=== PATIENT | female | born 1965 | race Caucasian/White ===

== ENCOUNTER → 2018-04-14 | Outpatient (CLI) | payer BC ==
--- NOTE | 2018-04-14 14:23 | RAD ---
EXT NON VASC LTD LEFT History: Knot in the region of left pubic region and left leg Comparison: None. Findings: Multiple sonographic images of the area of concern are submitted. This is labeled as being near the left mons pubic region. In the area of concern, there is superficial focus of hypoechogenicity with internal echoes present, about 0.8 x 0.8 x 0.7 cm in size. This is not associated with significant defined margin. There is small focus of vascularity near the periphery. Impression: 1. There is a nonspecific superficial hypoechoic lesion at site of palpable concern which may be a small complex fluid collection, diffuse internal echoes present. Electronically signed by: August Red MD (04/14/2018 2:20 PM) [id number]
== END | disposition home or self-care (01) ==
LOC: US 12:01
PROVIDERS: ATTEND Family Medicine
DX: R22.32 Localized swelling, mass and lump, left upper limb (principal)
CPT/HCPCS: 76882

== ENCOUNTER 2019-01-25 05:55 | Inpatient (IN) | payer BC ==
[~2019-01-25] VITALS: Ht 170.2 cm; Wt 104.1 kg
[2019-01-25] MEDS ORDERED: ASPIRIN 81 MG TAB.CHEW PO ONE (06:00)
[2019-01-25 06:13] LABS: BASO # 0.1 x10^3/uL (0.0-0.2); BASO % 1 % (0-3); EOS # 0.2 x10^3/uL (0.0-0.7); EOS % 3 % (0-3); HEMATOCRIT 42.5 % (36.0-47.0); HEMOGLOBIN 14.5 g/dL (12.0-15.5); LYMPH # 4.3 x10^3/uL (1.0-4.8); LYMPH % 50 % (24-48); MEAN CORPUSCULAR HEMOGLOBIN 34 pg (25-35); MEAN CORPUSCULAR HGB CONC 34 g/dL (31-37); MEAN CORPUSCULAR VOLUME 100 fL (79-100); MONO # 0.8 x10^3/uL (0.0-1.1); MONO % 9 % (0-9); NEUT # 3.2 x10^3uL (1.8-7.7); NEUT % 37 % (31-73); PLATELET COUNT 286 x10^3/uL (140-400); RED BLOOD COUNT 4.27 x10^6/uL (3.50-5.40); RED CELL DISTRIBUTION WIDTH 15.7 % (11.5-14.5); WHITE BLOOD COUNT 8.6 x10^3/uL (4.0-11.0)
--- NOTE | 2019-01-25 06:13 | PHYS DOC ---
Adult General Chief Complaint Chief Complaint: CHEST PAIN HPI HPI 53-year-old female presents with chest pain. The patient woke up to go to the restroom. She then went downstairs to get something from the living room and had sudden onset of severe 10 out of 10 central chest pain that radiates through to her shoulder blades. She states pain is also radiating up into her teeth. She denies shortness of breath, but does have diaphoresis. She's never had pain like this before. Patient has no cardiac history. She was feeling completely normal prior to this episode. The pain in the ED is also 10 out of 10. The patient denies significant medical problems. Review of Systems Review of Systems Constitutional: Denies fever or chills [] Eyes: Denies change in visual acuity, redness, or eye pain [] HENT: Denies nasal congestion or sore throat [] Respiratory: Denies cough or shortness of breath [] Cardiovascular: No additional information not addressed in HPI [] GI: Denies abdominal pain, nausea, vomiting, bloody stools or diarrhea [] : Denies dysuria or hematuria [] Musculoskeletal: Denies back pain or joint pain [] Integument: Denies rash or skin lesions [] Neurologic: Denies headache, focal weakness or sensory changes [] Endocrine: Denies polyuria or polydipsia [] All other systems were reviewed and found to be within normal limits, except as documented in this note. Current Medications Current Medications Current Medications Medications (Trade) Dose Ordered Sig/Cory Start Time Stop Time Status Last Admin Dose Admin Aspirin (Children'S Aspirin) 324 mg 1X ONCE 01/25/19 06:00 01/25/19 06:01 UNV 01/25/19 06:04 324 MG Nitroglycerin (Nitrostat) 0.4 mg 1X ONCE 01/25/19 06:15 01/25/19 06:16 UNV Allergies Allergies Allergies Coded Allergies Type Severity Reaction Last Updated Verified No Known Drug Allergies 01/25/19 No Physical Exam Physical Exam Constitutional: Well developed, obese, well nourished, no acute distress, non- toxic appearance. [] HENT: Normocephalic, atraumatic, bilateral external ears normal, oropharynx moist, no oral exudates, nose normal. [] Eyes: PERRLA, EOMI, conjunctiva normal, no discharge. [] Neck: Normal range of motion, no tenderness, supple, no stridor. [] Cardiovascular:Heart rate regular rhythm, no murmur [] Lungs & Thorax: Bilateral breath sounds clear to auscultation [] Abdomen: Bowel sounds normal, soft, no tenderness, no masses, no pulsatile masses. [] Skin: Warm, diaphoretic, no erythema, no rash. [] Back: No tenderness, no CVA tenderness. [] Extremities: No tenderness, no cyanosis, no clubbing, ROM intact, no edema. [] Neurologic: Alert and oriented X 3, normal motor function, normal sensory function, no focal deficits noted. [] Psychologic: Affect in pain, judgement normal, mood anxious. [] Current Patient Data Vital Signs Vital Signs Date Time Temp Pulse Resp B/P (MAP) Pulse Ox O2 Delivery O2 Flow Rate FiO2 01/25/19 06:05 69 157/83 EKG EKG Sinus rhythm, rate 62, normal axis, upsloping ST segments in V1 through V6, no ST depression.[] Radiology/Procedures Radiology/Procedures [] Impressions: PORTABLE CHEST 1V Clinical History: Chest pain Technique: AP view of the chest was obtained at 01/25/2019 6:05 AM. Comparison: None. Findings: The cardiomediastinal silhouette is normal. The pulmonary vasculature is normal. The lungs and pleural margins are clear. Impression: No evidence of an acute cardiopulmonary process. Electronically signed by: Favian Nation III, MD (01/25/2019 6:37 AM) [facility] [place] DICTATED AND SIGNED BY: FAVIAN NATION III, MD DATE: 01/25/19 0637 CC: OCTAVIO SHEARER MD; JOSE ALFREDO THOMPSON DO ~ Course & Med Decision Making Course & Med Decision Making Pertinent Labs and Imaging studies reviewed. (See chart for details) On arrival, the patient had an EKG performed immediately. She was also given 324 of aspirin. Her pain was 10 out of 10 so nitroglycerin was administered. The first dose did not improve her pain. She has been given a second dose. After the third dose, the patient's pain was 2 out of 10. She was feeling much better. We did not administer morphine. Her HEART score is 5. Her sodium is elevated at 146. We will give a liter of half normal saline instead of normal saline. Her chest x-rays unremarkable. Her EKG has some upsloping ST segments in the chest leads. Her initial troponin is negative. I have discussed the patient with Dr. Barfield and he has accepted the patient for admission. He has requested that I discussed the patient with cardiology to determine if she will stay at [facility] or be transferred to [place]. Dr. Keller, cardiology, does believe the patient can be safely admitted at [facility]. He has recommended we give a single dose of Lovenox prior to admission. [] Dragon Disclaimer Dragon Disclaimer This electronic medical record was generated, in whole or in part, using a voice recognition dictation system. Departure Departure: Impression: Primary Impression: Chest pain Disposition: ADMITTED INPATIENT Condition: STABLE Referrals: OCTAVIO SHEARER MD (PCP) Problem Qualifiers Primary Impression: Chest pain Chest pain type: precordial pain Qualified Codes: R07.2 - Precordial pain JOSE ALFREDO THOMPSON DO Jan 25, 2019 06:13
[2019-01-25] MEDS ORDERED: NITROGLYCERIN SUBLINGUAL 0.4 MG BOTTLE OF 25. SL ONE ×3 (06:15)
[2019-01-25] MEDS ORDERED: IV NORMAL SALINE 1,000ML 1,000 ML IV ONE (06:15)
[2019-01-25 06:26] LABS: ALBUMIN/GLOBULIN RATIO 1.3 (1.0-1.7); CALCIUM 9.4 mg/dL (8.5-10.1); CREATININE 0.8 mg/dL (0.6-1.0); GFR 74.7; POTASSIUM 3.7 mmol/L (3.5-5.1); TOTAL BILIRUBIN 0.3 mg/dL (0.2-1.0); TOTAL PROTEIN 7.2 g/dL (6.4-8.2)
[2019-01-25] MEDS ORDERED: MORPHINE SULFATE 4 MG/ML DISP.SYRIN. IV ONE (06:30)
[2019-01-25] MEDS ORDERED: ONDANSETRON PF 4 MG/2 ML VIAL. IV ONE (06:30)
--- NOTE | 2019-01-25 06:40 | RAD ---
PORTABLE CHEST 1V Clinical History: Chest pain Technique: AP view of the chest was obtained at 01/25/2019 6:05 AM. Comparison: None. Findings: The cardiomediastinal silhouette is normal. The pulmonary vasculature is normal. The lungs and pleural margins are clear. Impression: No evidence of an acute cardiopulmonary process. Electronically signed by: Adan Chappell III, MD (01/25/2019 6:37 AM) [facility]
[2019-01-25] MEDS ORDERED: IV 1/2 NORMAL SALINE 1,000 ML IV ONE (07:00)
[2019-01-25] MEDS ORDERED: ONDANSETRON PF 4 MG/2 ML VIAL. IV PRN (07:15)
[2019-01-25] MEDS ORDERED: ENOXAPARIN ** NOTE DOSE ** SYRINGE SQ ONE (07:15)
[2019-01-25] MEDS ORDERED: MORPHINE SULFATE 4 MG/ML DISP.SYRIN. IV PRN (07:30)
[2019-01-25 09:30] VITALS: BP 146/88
[2019-01-25 09:45] VITALS: BP 145/98
[2019-01-25 10:00] VITALS: BP 120/76
[2019-01-25 10:10] VITALS: BP 146/88
[2019-01-25] MEDS ORDERED: NITROGLYCERIN OINT 1 GM PACKET. ONE (10:10)
--- NOTE | 2019-01-25 10:11 | PDOC2 ---
CONSULT Date of Admission DATE: 01/25/19 TIME: 09:49 Reason for Consult: cp Problem List Problems Medical Problems: (1) Chest pain Status: Acute History of Present Illness Ms Lozano is a 53 year old female who presented to the ED with complaints of midsternal chest pain, radiating to her shoulder blades and up into her lower jaw. She reports associated dyspnea, nausea and diaphoresis. Onset with light activity. Pain relieved in the ED with NTG x 3. Initial CE negative. On arrival to room she is again having discomfort across her shoulder blades with mild discomfort in her midsternal region. she denies any prior history of similar symptoms. She does report chronic fatigue but believes it is second to depression. She reports in October she was on a cruise and very active without problems. She has been very sedentary since that time however and does now regular exercise. She denies congestive symptoms, palpitations, lightheadedness or syncope. Cardiovascular: HTN, hyperipidemia, Other (murmur) Musculoskeletal: low back pain, Other (intermittent right lower extremity parastesia ) Endocrine: Hypothyroidism Family History non contributory Social History non smoker, no illicit drugs, 6pk canned margaritas nightly Current Medications Current Medications Aspirin (Children'S Aspirin) 324 mg 1X ONCE PO Last administered on 01/25/19at 06:04; Start 01/25/19 at 06:00; Stop 01/25/19 at 06:13; Status DC Nitroglycerin (Nitrostat) 0.4 mg 1X ONCE SL Last administered on 01/25/19at 06: 05; Start 01/25/19 at 06:15; Stop 01/25/19 at 06:16; Status DC Nitroglycerin (Nitrostat) 0.4 mg 1X ONCE SL Last administered on 01/25/19at 06: 16; Start 01/25/19 at 06:15; Stop 01/25/19 at 06:16; Status DC Sodium Chloride 1,000 ml @ 1,000 mls/hr 1X ONCE IV ; Start 01/25/19 at 06:15; Stop 01/25/19 at 06:49; Status DC Nitroglycerin (Nitrostat) 0.4 mg 1X ONCE SL Last administered on 01/25/19at 06: 19; Start 01/25/19 at 06:15; Stop 01/25/19 at 06:26; Status DC Morphine Sulfate (Morphine 4mg Syringe) 4 mg 1X ONCE IV ; Start 01/25/19 at 06: 30; Stop 01/25/19 at 06:31; Status DC Ondansetron HCl (Zofran) 4 mg 1X ONCE IV ; Start 01/25/19 at 06:30; Stop at 06:31; Status DC Sodium Chloride 1,000 ml @ 1,000 mls/hr 1X ONCE IV Last administered on at 07:56; Start 01/25/19 at 07:00; Stop 01/25/19 at 07:59; Status DC Enoxaparin Sodium (Lovenox 100mg Syringe) 100 mg 1X ONCE SQ Last administered on 01/25/19at 07:53; Start 01/25/19 at 07:15; Stop 01/25/19 at 07:24; Status DC Ondansetron HCl (Zofran) 4 mg PRN Q4HRS PRN IV NAUSEA/VOMITING; Start 01/25/19 at 07:15; Stop 01/26/19 at 07:14 Morphine Sulfate (Morphine 4mg Syringe) 2 mg PRN Q2HR PRN IV PAIN; Start at 07:30 Allergies: Coded Allergies: No Known Drug Allergies (Unverified , 01/25/19) Review of System as per HPI or neg General: Alert, Oriented X3, Cooperative, mild distress HEENT: Atraumatic, EOMI, Mucous membr. moist/pink Lungs: Clear to auscultation Heart: Normal S1, Normal S2, Other (no gallops, clicks or rubs, no sig murmurs) Abdomen: Normal bowel sounds, Soft, No tenderness Extremities: No cyanosis, No edema, Normal pulses Neuro: Normal speech, Strength at 5/5 X4 ext Psych/Mental Status: Mental status NL, Mood NL VITALS Vital Signs Date Time Temp Pulse Resp B/P (MAP) Pulse Ox O2 Delivery O2 Flow Rate FiO2 01/25/19 09:30 97.8 64 20 146/88 (107) 96 Room Air Labs Laboratory Tests Test 01/25/19 06:00 White Blood Count 8.6 x10^3/uL (4.0-11.0) Red Blood Count 4.27 x10^6/uL (3.50-5.40) Hemoglobin 14.5 g/dL (12.0-15.5) Hematocrit 42.5 % (36.0-47.0) Mean Corpuscular Volume 100 fL (79-100) Mean Corpuscular Hemoglobin 34 pg (25-35) Mean Corpuscular Hemoglobin Concent 34 g/dL (31-37) Red Cell Distribution Width 15.7 % (11.5-14.5) Platelet Count 286 x10^3/uL (140-400) Neutrophils (%) (Auto) 37 % (31-73) Lymphocytes (%) (Auto) 50 % (24-48) Monocytes (%) (Auto) 9 % (0-9) Eosinophils (%) (Auto) 3 % (0-3) Basophils (%) (Auto) 1 % (0-3) Neutrophils # (Auto) 3.2 x10^3uL (1.8-7.7) Lymphocytes # (Auto) 4.3 x10^3/uL (1.0-4.8) Monocytes # (Auto) 0.8 x10^3/uL (0.0-1.1) Eosinophils # (Auto) 0.2 x10^3/uL (0.0-0.7) Basophils # (Auto) 0.1 x10^3/uL (0.0-0.2) Prothrombin Time 9.8 SEC (9.4-11.4) Prothromb Time International Ratio 1.0 (0.9-1.1) Activated Partial Thromboplast Time 25 SEC (23-33) Sodium Level 146 mmol/L (136-145) Potassium Level 3.7 mmol/L (3.5-5.1) Chloride Level 105 mmol/L (98-107) Carbon Dioxide Level 27 mmol/L (21-32) Anion Gap 14 (6-14) Blood Urea Nitrogen 10 mg/dL (7-20) Creatinine 0.8 mg/dL (0.6-1.0) Estimated GFR (Cockcroft-Gault) 74.7 BUN/Creatinine Ratio 13 (6-20) Glucose Level 134 mg/dL (70-99) Calcium Level 9.4 mg/dL (8.5-10.1) Total Bilirubin 0.3 mg/dL (0.2-1.0) Aspartate Amino Transf (AST/SGOT) 16 U/L (15-37) Alanine Aminotransferase (ALT/SGPT) 23 U/L (14-59) Alkaline Phosphatase 113 U/L (46-116) Troponin I Quantitative < 0.017 ng/mL (0-0.055) Total Protein 7.2 g/dL (6.4-8.2) Albumin 4.0 g/dL (3.4-5.0) Albumin/Globulin Ratio 1.3 (1.0-1.7) Images CXR - Impression: No evidence of an acute cardiopulmonary process. EKG - 1. sinus rhythm, anterior ischemia Assessment/Plan 1. ACS - Administered NTG, asa and lovenox. 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 R/B/A explained to patient and . Questions answered. 2. HTN 3. hx hyperlipidemia 4. hyperglycemia MADIE GANN CLAY MINE CUTTING MACHINE OPERATOR Jan 25, 2019 10:11
[2019-01-25] MEDS ORDERED: NITROGLYCERIN SUBLINGUAL 0.4 MG BOTTLE OF 25. SL PRN (10:15)
--- NOTE | 2019-01-25 10:27 | NUR ---
Pt admitted from ED with chest pain, cardiology here at time of admission. Asked Lety with Cards to see patient. Upon looking at patients EKG in ER it was noted that patient had ST elevation and ST depression. Symptoms relieved with nitro in ER but came back before coming to floor. 1 nitro given here, symptoms resolved. Repeat EKG and stat troponin done, EKG improved from ED. STEMI called, Krystin nursing pipe finishing supervisor notified, patient going straight to wharf laborer per PK. Dr Barfield made aware will accept patient there. Pt educated by Lety ESCALANTE about transfer and procedure. EMS called stat. 1 inch of nitro applied to right chest per orders from Lety. Pt complained of having difficulty breathing, 2L O2 applied for comfort. Report called to Nikole at [facility] wharf laborer. EMS arrived to take patient to wharf laborer. here with patient. Lab called with elevated troponin of 4, RN notified Lety and wharf laborer at [facility].
--- NOTE | 2019-01-25 17:18 | EKG ---
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
--- NOTE | 2019-01-25 17:19 | EKG ---
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
== END 2019-01-25 10:25 | disposition short-term general hospital (02) | DRG 311 ==
LOC: ER 05:55 → 1 SOUTH 09:18
PROVIDERS: ADMIT Internal Medicine; ATTEND Internal Medicine
DX: I24.9 Acute ischemic heart disease, unspecified (principal); E78.5 Hyperlipidemia, unspecified; I10 Essential (primary) hypertension; E03.9 Hypothyroidism, unspecified; F32.9 Major depressive disorder, single episode, unspecified; R73.9 Hyperglycemia, unspecified
CPT/HCPCS: 36415; 71045; 80053; 84484; 85025; 85610; 85730; 93005; 96360; 96372; J1650; J7030; 99285-25

== ENCOUNTER → 2019-05-08 | Outpatient (CLI) | payer BC ==
--- NOTE | 2019-05-08 14:54 | CARD ---
MR#: [id number] Date of Study: 05/08/2019 Ordering Physician: MARISABEL SMALL, Referring Physician: MARISABEL SMALL, Tech: Chela Zelaya APPROVED REPORT EXAM: Two-dimensional and M-mode echocardiogram with Doppler and color Doppler. Other Information Quality : AverageHR: 56bpm Rhythm : NSRTechnically limited study due to body habitus. INDICATION CAD RISK FACTORS Hypertension Hyperlipidemia 2D DIMENSIONS RVDd2.7 (2.9-3.5cm)Left Atrium(2D)3.9 (1.6-4.0cm) IVSd1.2 (0.7-1.1cm)Aortic Root(2D)3.4 (2.0-3.7cm) LVDd4.9 (3.9-5.9cm)LVOT Diameter2.1 (1.8-2.4cm) PWd1.1 (0.7-1.1cm)LVDs2.9 (2.5-4.0cm) FS (%) 41.6 %SV82.0 ml LVEF(%)72.4 (>50%) Aortic Valve AoV Peak Garth.157.5cm/sAoV VTI38.3cm AO Peak GR.9.9mmHgLVOT Peak Garth.120.8cm/s LVOT VTI 27.97cmAO Mean GR.6mmHg ONEL (VMAX)2.76in7IIH (VTI)2.57cm2 Mitral Valve MV E Imwmetrs33.3cm/sMV DECEL OLFR635uw MV A Jkglnilz53.7cm/sE/A Ratio0.9 Pulmonary Valve PV Peak Yzlessbv18.0cm/sPV Peak Grad.4mmHg Tricuspid Valve TR P. Cmbxxcjy693jp/sRAP IRSUSTJH6diPf TR Peak Gr.32lgPtIUVS66pfXy Pulmonary Vein S1 Qpboaarc88.9cm/sD2 Syynbjyp70.2cm/s LEFT VENTRICLE The left ventricle is normal size. There is mild concentric left ventricular hypertrophy. The left ve ntricular systolic function is normal. The Ejection Fraction is 55-60%. There is normal LV segmental wall motion. Transmitral Doppler flow pattern is Grade I-abnormal relaxation pattern. RIGHT VENTRICLE The right ventricle is mildly dilated. There is normal right ventricular wall thickness. Systolic fun ction is borderline reduced. ATRIA The left atrium size is normal. The right atrium size is normal. The interatrial septum is intact wit h no evidence for an atrial septal defect or patent foramen ovale as noted on 2-D or Doppler imaging. AORTIC VALVE The aortic valve is thickened but opens well. Doppler and Color Flow revealed no significant aortic r egurgitation. There is no significant aortic valvular stenosis. MITRAL VALVE The mitral valve is normal in structure and function. There is no evidence of mitral valve prolapse. There is no mitral valve stenosis. Doppler and Color-flow revealed trace mitral regurgitation. TRICUSPID VALVE The tricuspid valve is normal in structure and function. Doppler and Color Flow revealed trace tricus pid regurgitation with an estimated PAP of 26 mmHg. There is no tricuspid valve stenosis. PULMONIC VALVE The pulmonic valve is not well visualized. Doppler and Color Flow revealed no pulmonic valvular regur gitation. GREAT VESSELS The aortic root is normal in size. The IVC is normal in size and collapses >50% with inspiration. PERICARDIAL EFFUSION There is no evidence of significant pericardial effusion. Critical Notification Critical Value: No <Conclusion> The left ventricular systolic function is normal. The Ejection Fraction is 55-60%. There is normal LV segmental wall motion. Transmitral Doppler flow pattern is Grade I-abnormal relaxation pattern. Trace mitral regurgitation. Trace tricuspid regurgitation with an estimated PAP of 26 mmHg. There is no evidence of significant pericardial effusion. Signed by : Manuel Keller, Electronically Approved : 05/08/2019 14:53:58
== END | disposition home or self-care (01) ==
LOC: ECHO 12:58
PROVIDERS: ATTEND Internal Medicine Cardiovascular Disease
DX: I51.7 Cardiomegaly (principal); I25.10 Atherosclerotic heart disease of native coronary artery without angina pectoris
CPT/HCPCS: 93306

== ENCOUNTER → 2020-03-03 | Outpatient (CLI) | payer BC ==
--- NOTE | 2020-03-03 17:26 | RAD ---
3 views left knee and standing views of bilateral knee dated 03/03/2020. No comparison available. Clinical data indication: Pain. FINDINGS: Standing AP views of the bilateral knee show normal bony alignment. No displaced fracture. 3 views of left knee show no significant bony abnormality. Mild tricompartmental hypertrophic changes bilaterally. There is a small joint effusion on the left. No apparent loose body. IMPRESSION: 1. No acute bony abnormality. 2. Mild tricompartmental DJD. 3. Small joint effusion on the left, nonspecific. If there is clinical concern for internal derangement, MRI would better evaluate. Electronically signed by: Tyrone Reddy MD (03/03/2020 5:23 PM) [facility]
== END | disposition home or self-care (01) ==
LOC: DXRAD 16:27
PROVIDERS: ATTEND Physician Assistant
DX: M17.12 Unilateral primary osteoarthritis, left knee (principal); M25.462 Effusion, left knee
CPT/HCPCS: 73560; 73565

== ENCOUNTER → 2021-09-30 | Outpatient (CLI) | payer BC ==
--- NOTE | 2021-10-01 12:16 | RAD ---
BILATERAL DIGITAL SCREENING 2-D MAMMOGRAM INDICATION: Routine screening. COMPARISON: The previous outside exams at [facility] are no longer available Interpretation was made using CAD. FINDINGS: There are multiple interval circumscribed mass is seen bilaterally. Given the multiplicity and appearance, these are considered benign. Breast Density: There are scattered areas of fibroglandular density. RIGHT BREAST: In the upper inner posterior aspect of the breast there is a focal asymmetry. This is m ore pronounced on the cc view and likely represents superimposed parenchyma. No suspicious mass or ar ea of calcification is seen. LEFT BREAST: No suspicious masses, calcifications or areas of architectural distortion are seen. IMPRESSION: 1. Indeterminate right breast asymmetry. A right diagnostic mammogram and possible ultrasound is rec ommended. Patient would benefit from 3-D diagnostic imaging to include a 3-D rolled lateral full-fiel d cc view and full field 3-D mL and full-field 3-D MLO are also recommended. Alternatively, patient s hould could have a 2-D diagnostic mammogram to include spot compression and true lateral views. 2. Normal left mammogram with no imaging evidence of malignancy. ASSESSMENT: BI-RADS 0 Incomplete Assessment. Additional imaging is necessary. The facility will notif y the patient of the need to return for additional imaging. RECOMMENDATION: Right diagnostic mammogram and possible ultrasound. The facility will notify the patient of the results via mail. Patient information will be entered int o the mammography reminder system with a target recall date for the next mammogram. A reminder letter will be generated by the facility. Electronically signed by: Amie Mack MD (10/01/2021 12:13 PM) [id number]
== END ==
LOC: MAMMO 15:16
PROVIDERS: ATTEND Physician Assistant Medical
DX: Z12.31 Encounter for screening mammogram for malignant neoplasm of breast (principal); N63.10 Unspecified lump in the right breast, unspecified quadrant; N63.20 Unspecified lump in the left breast, unspecified quadrant; N64.89 Other specified disorders of breast
CPT/HCPCS: 77067